=== PATIENT | female | born 1980 | race Caucasian/White ===

== ENCOUNTER → 2017-01-05 | Outpatient (CLI) | payer OTHER ==
[~2017-01-05] MED LIST: AMOXICILLIN875 MG PO; BACTRIM 400-801 TA1 PO; FLOMAX0.4 M1 DOB; FLOMAX0.4 M1 PO; KEFLEX PO; LORTAB 5-325 M1 EACH PO; NORCO1 TAB 10/3 PO; PERCOCET5/325 PO; SUDAFED PO; TRAMADOL HCL50 M1 PO; ZITHROMAX PO; ZOFRAN ODT4 MG/UDTAB PO; ZOLOFT100 MG PO; ZOLOFT50 MG PO
--- NOTE | ~2017-01-05 | US6 ---
[facility] RADIOLOGY TEXT RESULTS PATIENT: RASHAWN ALEXIS LOCATION: [facility] : [birth year] UNIT #: [id number] AGE: [address]: Martinez Ceron MD SEX: F ORDER DR: [id number] [facility] [address] [place], [place] [address] [id number] O MR#: [id number] Acc #: [id number] NAME: RASHAWN ALEXIS : 1980 SEX: F STUDY DATE/TIME: 01/05/2017 10:46 UNIT: CGUS ROOM: STUDY DESCRIPTION: US Abdominal Limited Attending Physician: Martinez Ceron M.D. Referring Physician: Martinez Ceron M.D. Ordering Physician: Martinez Ceron M.D. Primary Care Physician: Martinez Ceron M.D. MEDICAL IMAGING REPORT This report is preliminary unless electronic signature is present EXAM Right upper quadrant abdominal ultrasound. INDICATIONS Elevated liver enzyme levels. PROCEDURE Perez-scale and Doppler imaging of the right upper quadrant of the abdomen. COMPARISON None. FINDINGS Pancreas obscured by bowel gas. The liver shows diffusely increased echotexture. No liver mass is seen on submitted images. The liver measures 17.1 cm. The right kidney measures 11.7 cm. No hydronephrosis. Common duct measures 4 mm. Previous cholecystectomy. IMPRESSION 1. Increased liver echotexture in keeping with steatosis. 2. Pancreas is not seen on the study. 3. Otherwise, negative right upper quadrant ultrasound. Dictated by... Tonio Garces M.D. THIS IS AN ELECTRONICALLY VERIFIED REPORT Tonio Garces M.D. at 01/08/2017 9:45 AM KAYLEIGH/mirian TD: 01/05/2017 15:41 JOB #: [id number] [facility] RADIOLOGY TEXT RESULTS PATIENT: RASHAWN ALEXIS LOCATION: [facility] : 82 UNIT #: [id number] AGE: [address]: Martinez Ceron MD SEX: F ORDER DR: MEDICAL IMAGING REPORT Page 1 of 1 COPY
== END | disposition home or self-care (01) ==
LOC: CGUS 10:18
DX: R74.0 Nonspecific elevation of levels of transaminase and lactic acid dehydrogenase [LDH] (principal); K76.0 Fatty (change of) liver, not elsewhere classified
CPT/HCPCS: 76705